=== PATIENT | female | born 1950 | race Caucasian/White ===

== ENCOUNTER → 2019-05-15 | Outpatient (CLI) | payer OTHER ==
[~2019-05-15] MED LIST: CENTRUM SILVER1 EAC1 PO; CQ 10; FISH OIL 1,0001 EAC5 PO; LISINOPRIL10 MG; NEXIUM40 MG PO; VITAMIN D1000 UNI1 PO; VITAMINC500 PO
== END ==
LOC: M.RAD 10:12
DX: Z12.31 Encounter for screening mammogram for malignant neoplasm of breast (principal)

== ENCOUNTER → 2021-05-26 | Outpatient (CLI) | payer OTHER | LOC: M.RAD 11:08 | PROVIDERS: ATTEND Hospitalist | DX: Z12.31 Encounter for screening mammogram for malignant neoplasm of breast (principal); N63.20 Unspecified lump in the left breast, unspecified quadrant ==